=== PATIENT | female | born 1950 ===

== ENCOUNTER 2018-02-12 07:34 | Day surgery (SDC) | payer MEDICARE ==
[2018-02-10 10:01] VITALS: BMI 27.4
--- NOTE | 2018-02-12 09:32 | CP.SDSHP ---
Same Day Surgery H & P - History Proposed Procedure: colonoscopy Pre-Op Diagnosis: history of colon polyps - Previous Medical/Surgical History Cardiac: Hypertension Endocrine/Metabolic: Diabetes - Allergies Allergies: Allergies No Known Allergies Allergy (Verified 02/10/18 10:01) - Physical Exam General Appearance: NAD Vital Signs: Vital Signs 02/12/18 07:57 Temperature 97.3 F L Pulse Rate 88 Respiratory 20 Rate Blood Pressure 125/82 O2 Sat by Pulse 97 Oximetry Mental Status: Alert & Oriented x3 Neuro: WNL Heart: WNL Lungs: WNL GI: WNL - {Optional Preform as Required} Abdomen: WNL - Impression Pt. Evaluated Today:Candidate for Anesthesia & Procedure: Yes - Date & Time Date: 02/12/18 Time: 09:32 Short Stay Discharge - Short Stay Discharge Admitting Diagnosis/Reason for Visit: SCREENING Disposition: HOME/ ROUTINE
[2018-02-12] MEDS ORDERED: Propofol 10 mg/ml Inj (20 ML) ONE (09:50)
[2018-02-12 10:30] VITALS: TEMP 97
[2018-02-12 10:57] VITALS: BP 128/78; PULSE 81; RESP 18; O2SAT 100
== END 2018-02-12 11:01 | disposition home or self-care (01) ==
LOC: C.ENDO 07:34
PROVIDERS: ATTEND Internal Medicine Gastroenterology
DX: Z12.11 Encounter for screening for malignant neoplasm of colon (principal); E11.9 Type 2 diabetes mellitus without complications; I10 Essential (primary) hypertension; Z86.010 Personal history of colon polyps; K57.30 Diverticulosis of large intestine without perforation or abscess without bleeding; K64.1 Second degree hemorrhoids
CPT/HCPCS: 45385; 88305; J2704; J7040